=== PATIENT | female | born 1980 | race Caucasian/White ===

== ENCOUNTER 2021-06-19 12:37 | Emergency (ER) | payer OTHER ==
[~2021-06-19] VITALS: Ht 170.2 cm; Wt 58.1 kg
--- NOTE | 2021-06-19 13:09 | NUR ---
Pt ambulated to bed 10 with steady/even gait.
[2021-06-19 13:12] VITALS: BP 104/73
--- NOTE | 2021-06-19 14:14 | NUR ---
40 YEAR OLD FEMALE COMPLAINS OF ANXIETY X 1 HOUR. PT STATES SHE WAS ABLE TO FEEL AN ANXIETY ATTACK COMING AND TOOK 1/2 XANAX. PT STATES SOB, FEELS IMPENDING DOOM, AND VISIBLY SHAKING. PT ON MONITOR - HR 116, SPO2 95%RA ON 22 RR. PT AOX4, BREATHING EVEN AND UNLABORED, SKIN WARM AND DRY. BED IN LOWEST POSITION, LOCKED, BED RAIL UPX1. PMH - ANXIETY ALLERGIES - NKA
--- NOTE | 2021-06-19 15:16 | NUR ---
PT STATES SHE IS STILL HAVING ALOT OF ANXIETY, ERMD MADE AWARE
[2021-06-19 15:31] VITALS: BP 105/72
--- NOTE | 2021-06-19 16:25 | NUR ---
DR LOCKHART ARRIVED TO PT ROOM, PT COMPLAINED "I AM NOT WAITING HERE ANYMORE, I DONT CARE WHO YOU ARE, I AM LEAVING" . PRIMARY NURSE EXPLAINED TO PT THAT THE DOCTOR WAS HERE TO SEE HER, AND SHE STATES SHE DID NOT CARE AND WAS LEAVING.
--- NOTE | 2021-06-19 16:26 | NUR ---
PATIENT LEFT WITHOUT BEING SEEN BY DR. LOCKHART. NO FURTHER CARE PROVIDED FOR PATIENT.
== END 2021-06-19 16:26 | disposition left against medical advice (07) ==
LOC: MED 12:37
DX: F41.9 Anxiety disorder, unspecified (principal); Z53.21 Procedure and treatment not carried out due to patient leaving prior to being seen by health care provider